=== PATIENT | male | born 1980 | race Caucasian/White ===

== ENCOUNTER → 2018-01-21 | Outpatient (CLI) | payer OTHER ==
--- NOTE | 2018-01-29 08:26 | SLEEP ---
[address] [address] SLEEP STUDY REPORT Name: QUENTIN MACIAS [id number] Admission: 01/21/18 Attend Phys: Shayla Conway DO Discharge: Date of : 80 Report #: [id number] THIS REPORT FOR: //name// CC: Shayla Conway This study has been reviewed in its entirety by a board certified sleep specialist DATE OF SERVICE: 01/21/2018 HOME SLEEP STUDY REQUESTING PHYSICIAN: Dr. Shayla Conway. Home sleep study was performed. Note, [place] sleepiness scale was 16. The patient's weight was 292 pounds with a BMI of 52.2. Total recording time was 491 minutes. During this study, no central apneas were noted. There was a total of 147 obstructive apneas and 53 hypopneas. This resulted in an apnea-hypopnea index of 25.2. All the recording time was while the patient was in the supine position. The lowest observed O2 saturation was 79%. There was a total of 23 minutes with O2 saturations of less than 88%. Some snoring was noted also. ASSESSMENT: 1. This home study does reveal severe obstructive sleep apnea. Apnea-hypopnea index elevated at 25.2, associated with desaturation. 2. Elevated body mass index. RECOMMENDATIONS: 1. Consider a visit to the sleep lab for CPAP/BiPAP titration. Alternatively, could consider an auto titrate CPAP unit at home. 2. Obtaining and maintaining ideal body weight. 3. The patient should also be cautioned on risk of driving and performing complex tasks until sleep complaints are addressed. <ELECTRONICALLY SIGNED> By: Quiana Francois MD 01/29/18 0826 [id number] Francois MD /nt
== END ==
LOC: M.SLEEPLAB 09:00
DX: G47.33 Obstructive sleep apnea (adult) (pediatric) (principal); Z68.37 Body mass index [BMI] 37.0-37.9, adult

== ENCOUNTER → 2018-02-20 | Outpatient (CLI) | payer OTHER ==
--- NOTE | 2018-02-28 12:03 | SLEEP ---
[address] [address] SLEEP STUDY REPORT Name: QUENTIN MACIAS [facility] [id number] Admission: 02/20/18 Attend Phys: Shayla Conway DO Discharge: Date of : 80 Report #: [id number] THIS REPORT FOR: //name// CC: Shayla Conway This study has been reviewed in its entirety by a board certified sleep specialist DATE OF SERVICE: 02/20/2018 This is a PSG titration study. Titration polysomnography was performed. The patient previously had home sleep study done, which was markedly abnormal. There was evidence of severe obstructive sleep apnea with an apnea-hypopnea index of 25.2, associated with desaturation. He returns to the sleep lab for titration study. 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 Previously was noted to be 292 pounds with a BMI of 41.9. [place] sleepiness scale elevated at 18/24. The total study time was 412 minutes. Total sleep time was 349 minutes. Sleep efficiency was 85%. 17% of the time was spent in REM sleep. During this titration study, there were total of 41 apneas noted and 2 obstructive apneas. There were 83 hypopneas. Given the findings on his prior home sleep study, nasal CPAP was started at 5 cm of water pressure. This was titrated up to a maximum of 12 cm of water pressure. However, it was noted he was having central apneas. He was then converted over to BiPAP. Additional titration was done. Ending pressures of BiPAP of 16/10, resulted in apnea-hypopnea index of 0.7. O2 saturations at that level were greater than 90%. There were 81 periodic limb movements noted, 16 with an arousal. This resulted in a PLMS arousal index of 2.7. He had a large number of spontaneous and respiratory arousals as well. Lowest observed O2 saturation was 51%. The patient had a full turner and initial attempts with the CPAP was with a full face mask. However, this was changed over to a nasal pillow mask, which he tolerated well. A F and P Brevida nasal pillow mask was utilized. It was also a ramp of 10 minutes and B-Flex of 3. IMPRESSION: 1. Titration study reveals a BiPAP pressures of 16/10, [place] [address] SLEEP STUDY REPORT Name: QUENTIN MACIAS [id number] Admission: 02/20/18 Attend Phys: Shayla Conway DO Discharge: Date of : 80 Report #: [id number] control the obstructive and central sleep apnea. Pressures also kept his O2 saturations greater than 90%. Would recommend ongoing utilization of this. 2. Elevated body mass index. RECOMMENDATIONS: Recommend medically supervised weight loss program to achieve and maintain ideal body weight. <ELECTRONICALLY SIGNED> By: Quiana Francois MD 02/28/18 1203 [id number] Francois MD /nt
== END ==
LOC: M.SLEEPLAB 20:00
DX: G47.30 Sleep apnea, unspecified (principal)